=== PATIENT | female | born 1995 | race Caucasian/White ===

== ENCOUNTER 2018-10-02 07:40 | Inpatient (IN) | payer BC ==
[2018-10-02] MEDS ORDERED: Lactated Ringers 1,000 ML ONE (18:09)
[2018-10-02] MEDS ORDERED: Oxytocin/Lactated Ringers 10 UNIT/1,000 ML BAG IV ONE (18:09)
[2018-10-02] MEDS: Lactated Ringers 1,000 ML IV SCH (18:14)
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
[2018-10-02] MEDS ORDERED: Sodium Chloride 0.9% 10 ML Syringe FLUSH PRN (21:26)
[2018-10-02] MEDS ORDERED: Ondansetron 4 MG/2 ML SDV IVPUSH PRN (21:26)
[2018-10-02] MEDS ORDERED: Oxytocin/Lactated Ringers 10 UNIT/1,000 ML BAG IV SCH ×2 (21:30→21:45)
[2018-10-03] MEDS: Lactated Ringers 1,000 ML IV SCH ×2 (04:15→05:35)
[2018-10-03] MEDS: Nalbuphine 20 MG/ML 1 ML Syringe IVPUSH PRN ×2 (06:08→07:28)
--- NOTE | 2018-10-03 07:11 | PCM.PNLD ---
Labor Progress Note - VS & Meds Active Medications: Current Medications Lactated Ringer's (Ringers, Lactated) 1,000 mls @ 100 mls/hr IV ASDIRECTED MARSHALL Last Admin: 10/03/18 05:35 Dose: 100 mls/hr Oxytocin/Lactated Ringer's (Pitocin In Lr 10 Units/1,000 Ml) 10 unit in 1,000 mls @ 500 mls/hr IV .CONTINUOUS MARSHALL Oxytocin/Lactated Ringer's (Pitocin In Lr 10 Units/1,000 Ml) 10 unit in 1,000 mls @ 12 mls/hr IV TITRATE MARSHALL; Protocol Last Titration: 10/02/18 23:35 Dose: 12 munits/min, 72 mls/hr Nalbuphine HCl (Nubain) 10 mg IVPUSH Q2H PRN PRN Reason: pain Last Admin: 10/03/18 06:08 Dose: 5 mg Ondansetron HCl (Zofran) 4 mg IVPUSH Q4H PRN PRN Reason: Nausea/Vomiting Sodium Chloride (Saline Flush) 10 ml FLUSH ASDIRECTED PRN PRN Reason: Keep Vein Open - Uterine Contractions Uterine Monitoring Mode: External Conception Contraction Intensity: Moderate Uterine Resting Tone: Soft - Monitoring Monitor Mode: External Ultrasound Heart Rate (FHR) Baseline: 150 Heart Rate (FHR) Variability: Moderate (6-25 bmp) Accelerations: Present, 10x10 (=/<32 wks) Decelerations: Variable Strip Review: Category II - Vaginal Exam Dilation (cm): 7-8 Effacement (Percent): 80 Station: 1 Cervical Position: Anterior - Labor Progress (Free Text) Labor Progress: Patient has had slow progress since about 030. Was 6 cm at that time. Now is about 7 to almost 8 depending upon if checked with a contraction. Patient keeps feeling urge to push. Has been given nubain to try and help her relax so does not push on cervix, but with only mild improvement. Pitocin at 10. Will continue present management. May need to consider epidural to allow patient to relax and allow continued labor progress
--- NOTE | 2018-10-03 07:54 | PCM.DEL ---
L & D Note - General Info Date of Service: 10/03/18 - Delivery Note Labor: Induced by ARM, Induced by Oxytocin Delivery Outcome: Livebirth Infant Delivery Method: Spontaneous Vaginal Delivery-Single Infant Delivery Mode: Spontaneous Presentation: Left Occiput Anterior (MICHAEL) Nuchal Cord: Present, Reduced Anesthesia Type: None Amniotic Fluid Description: Clear Episiotomy Type: None Laceration: None Placenta: Intact, Spontaneous Cord: 3 Vessels Estimated Blood Loss: 300 : Bulb Syringe, Stimulated, Warmed, [place] Used, Warmer Used Delivery Comments (Free Text/Narrative):: Patient found to be complete and began pushing. With maternal pushing effort head delivered from an MICHAEL presentation nuchal cord present and reduced. With gentle downward traction the shoulders and body delivered. placed on maternal abdomen. Cord clamped and cut. Cord blood obtained. Placenta allowed time to separate and expelled intact. Inspection of the perineum showed no lacerations - General Info Date of Service: 10/03/18 - Patient Data Weight - Most Recent: 58.967 kg I&O - Last 24 Hours: Intake & Output 10/02/18 10/03/18 10/03/18 22:59 06:59 14:59 Intake Total 120 Balance 120 Lab Results Last 24 Hours: Laboratory Results - last 24 hr 10/02/18 10/02/18 10/02/18 Range/Units 17:46 17:46 17:46 WBC Cancelled Corrected WBC Cancelled RBC Cancelled Hgb Cancelled Hct Cancelled MCV Cancelled MCH Cancelled MCHC Cancelled RDW Std Deviation Cancelled Plt Count Cancelled MPV Cancelled Neutrophils % (Manual) Cancelled Band Neutrophils % Cancelled Lymphocytes % (Manual) Cancelled Atypical Lymphs % Cancelled Immat Monocytes % (Man) Cancelled Monocytes % (Manual) Cancelled Eosinophils % (Manual) Cancelled Basophils % (Manual) Cancelled Metamyelocytes % Cancelled Myelocytes % Cancelled Promyelocytes % Cancelled Blast Cells % Cancelled Plasma Cell % (Manual) Cancelled Immature Gran # Cancelled Absolute Neutrophils Cancelled Absolute Seg Neuts Cancelled Band Neutrophils # Cancelled Lymphocytes # (Manual) Cancelled Monocytes # (Manual) Cancelled Eosinophils # (Manual) Cancelled Basophils # (Manual) Cancelled Absolute Metamyelocyte Cancelled Absolute Myelocytes Cancelled Absolute Promyelocytes Cancelled Absolute Plasma Cells Cancelled Nucleated RBCs Cancelled Differential Comment Cancelled Hypersegmented Neuts Cancelled Atypical Lymphocytes Cancelled Vacuolated Monocytes Cancelled Absolute Blast Cells Cancelled Toxic Granulation Cancelled Dohle Bodies Cancelled Pelger-Huet Cells Cancelled Megakaryocytic Frags Cancelled Lidya Rods Cancelled WBC Morphology Comment Cancelled Platelet Estimate Cancelled Clumped Platelets Cancelled Giant Platelets Cancelled Plt Morphology Comment Cancelled Polychromasia Cancelled Hypochromasia Cancelled Poikilocytosis Cancelled Basophilic Stippling Cancelled Anisocytosis Cancelled Microcytosis Cancelled Macrocytosis Cancelled Spherocytes Cancelled Pappenheimer Bodies Cancelled Sickle Cells Cancelled Target Cells Cancelled Tear Drop Cells Cancelled Ovalocytes Cancelled Stomatocytes Cancelled Helmet Cells Cancelled Gallegos-Tolleson Bodies Cancelled [place] Rings Cancelled Hubert Cells Cancelled Elliptocytes Cancelled Acanthocytes (Spur) Cancelled Rouleaux Cancelled Hemoglobin C Crystals Cancelled Schistocytes Cancelled RBC Morph Comment Cancelled Smear Path Review Cancelled Isael Bodies Cancelled Slides for Path Review Cancelled Blood Type Cancelled B POSITIVE Gel Antibody Screen Cancelled Negative 10/02/18 Range/Units 17:46 WBC 10.03 Corrected WBC RBC 3.95 L Hgb 11.3 Hct 35.6 MCV 90.1 MCH 28.6 MCHC 31.7 L RDW Std Deviation 42.5 Plt Count 234 MPV 10.6 Neutrophils % (Manual) 63 H Band Neutrophils % 0 Lymphocytes % (Manual) 30 Atypical Lymphs % Immat Monocytes % (Man) Monocytes % (Manual) 7 Eosinophils % (Manual) 0 L Basophils % (Manual) 0 L Metamyelocytes % Myelocytes % Promyelocytes % Blast Cells % Plasma Cell % (Manual) Immature Gran # Absolute Neutrophils Absolute Seg Neuts Band Neutrophils # Lymphocytes # (Manual) Monocytes # (Manual) Eosinophils # (Manual) Basophils # (Manual) Absolute Metamyelocyte Absolute Myelocytes Absolute Promyelocytes Absolute Plasma Cells Nucleated RBCs Differential Comment Hypersegmented Neuts Atypical Lymphocytes Vacuolated Monocytes Absolute Blast Cells Toxic Granulation Dohle Bodies Pelger-Huet Cells Megakaryocytic Frags Lidya Rods WBC Morphology Comment Platelet Estimate Adequate Clumped Platelets Giant Platelets Plt Morphology Comment Normal Polychromasia Hypochromasia Poikilocytosis Basophilic Stippling Anisocytosis Microcytosis Macrocytosis Spherocytes Pappenheimer Bodies Sickle Cells Target Cells Tear Drop Cells Ovalocytes Stomatocytes Helmet Cells Gallegos-Tolleson Bodies [place] Rings Hubert Cells Elliptocytes Acanthocytes (Spur) Rouleaux Hemoglobin C Crystals Schistocytes RBC Morph Comment Normal Smear Path Review Isael Bodies Slides for Path Review Blood Type Gel Antibody Screen Med Orders - Current: Current Medications Lactated Ringer's (Ringers, Lactated) 1,000 mls @ 100 mls/hr IV ASDIRECTED MARSHALL Last Admin: 10/03/18 05:35 Dose: 100 mls/hr Oxytocin/Lactated Ringer's (Pitocin In Lr 10 Units/1,000 Ml) 10 unit in 1,000 mls @ 500 mls/hr IV .CONTINUOUS MARSHALL Oxytocin/Lactated Ringer's (Pitocin In Lr 10 Units/1,000 Ml) 10 unit in 1,000 mls @ 12 mls/hr IV TITRATE MARSHALL; Protocol Last Titration: 10/03/18 00:27 Dose: 6 munits/min, 36 mls/hr Nalbuphine HCl (Nubain) 10 mg IVPUSH Q2H PRN PRN Reason: pain Last Admin: 10/03/18 07:28 Dose: 5 mg Ondansetron HCl (Zofran) 4 mg IVPUSH Q4H PRN PRN Reason: Nausea/Vomiting Sodium Chloride (Saline Flush) 10 ml FLUSH ASDIRECTED PRN PRN Reason: Keep Vein Open - Problem List & Annotations (1) 38 weeks gestation of SNOMED Code(s): 68561625 Code(s): Z3A.38 - 38 WEEKS GESTATION OF Status: Acute Current Visit: Yes (2) Solar pruritus SNOMED Code(s): 813336165 Code(s): L29.9 - PRURITUS, UNSPECIFIED Status: Acute Current Visit: Yes (3) Vaginal delivery SNOMED Code(s): 834013786 Code(s): O80 - ENCOUNTER FOR FULL-TERM UNCOMPLICATED DELIVERY Status: Acute Current Visit: No - Problem List Review Problem List Initiated/Reviewed/Updated: Yes - My Orders Last 24 Hours: My Active Orders 10/02/18 17:46 BILE ACIDS [REF] Routine RAPID PLASMA REAGIN,RPR [CHEM] Routine 10/02/18 21:26 Patient Status [ADT] Routine Activity as Tolerated [RC] PFP Communication Order [RC] ASDIRECTED Non Stress Test [RC] PER UNIT ROUTINE Notify Provider [RC] PFP Notify Provider [RC] PRN Urinary Catheter Assessment [RC] ASDIRECTED Vital Signs [RC] PER UNIT ROUTINE Nalbuphine [Nubain] 10 mg IVPUSH Q2H PRN Ondansetron [Zofran] 4 mg IVPUSH Q4H PRN Sodium Chloride 0.9% [Saline Flush] 10 ml FLUSH ASDIRECTED PRN Electronic Heart Tones Ext w TOCO [WOMSER] Routine Electronic Heart Tones Internal [WOMSER] Per Unit Routine Peripheral IV Insertion Adult [OM.PC] Routine Resuscitation Status Routine 10/02/18 21:27 Heart Tones [RC] ASDIRECTED Peripheral IV Care [RC] . DIRECTED 10/02/18 21:30 Lactated Ringers [Ringers, Lactated] 1,000 ml IV ASDIRECTED Oxytocin/Lactated Ringers [Pitocin in LR 10 Units/1,000 ML] 10 unit in 1,000 ml IV .CONTINUOUS 10/02/18 21:45 Oxytocin/Lactated Ringers [Pitocin in LR 10 Units/1,000 ML] 10 unit in 1,000 ml IV TITRATE 10/02/18 Breakfast Regular Diet [DIET] - Assessment Assessment:: 23 y/o G3 now P2012 PPD#0 from - Plan Plan:: * Routine cares * Encourage breast feeding * Discharge home in 1-2 days
[2018-10-03] MEDS ORDERED: Lanolin 100% Cream 7 GM Tube TOP PRN (07:56)
[2018-10-03] MEDS ORDERED: Witch Hazel Medicated Pads 100/Jar TOP PRN (07:56)
[2018-10-03] MEDS ORDERED: Docusate Sodium 100 MG Cap PO PRN (07:56)
[2018-10-03] MEDS ORDERED: Benzocaine/Menthol 20%-0.5% Spray 56 GM Canister TOP PRN (07:56)
[2018-10-03] MEDS ORDERED: Ibuprofen 600 MG Tab PO PRN (07:56)
[2018-10-03] MEDS ORDERED: Acetaminophen 325 MG Tab PO PRN (07:56)
--- NOTE | 2018-10-04 06:57 | PCM.DCSUM1 ---
Discharge Summary - Discharge Data Discharge Date: 10/04/18 Discharge Disposition: Home, Self-Care 01 Condition: Good - Discharge Diagnosis/Problem(s) (1) 38 weeks gestation of SNOMED Code(s): 64497349 ICD Code: Z3A.38 - 38 WEEKS GESTATION OF Status: Acute Current Visit: Yes (2) Solar pruritus SNOMED Code(s): 731080595 ICD Code: L29.9 - PRURITUS, UNSPECIFIED Status: Acute Current Visit: Yes (3) Vaginal delivery SNOMED Code(s): 508091651 ICD Code: O80 - ENCOUNTER FOR FULL-TERM UNCOMPLICATED DELIVERY Status: Acute Current Visit: No - Patient Summary/Data Complications: None Consults: None Recommended Follow-up Testing/Procedures: Follow up in 3-5 weeks for check Hospital Course: 23 y/o at 38 1/7 wks who presented for IOL for presumed cholestasis of . Patient had noted about 1 week of intense itching prior to her clinic appt. Bile acids ordered, but IOL started. This was done with pitocin and AROM. She made slow, but steady progress to complete dilation. She underwent an uncomplicated . See delivery note. she did well and was discharged home on PPD#1 - Patient Instructions Diet: Regular Diet as Tolerated Activity: As Tolerated Activity, Other: Pelvic Rest for 6 weeks Driving: May Drive Today Showering/Bathing: May Shower Showering/Bathing, Other: May Bathe Notify Provider of: Fever, Increased Pain, Swelling and Redness, Drainage - Discharge Plan *PRESCRIPTION DRUG MONITORING PROGRAM REVIEWED*: Not Applicable *COPY OF PRESCRIPTION DRUG MONITORING REPORT IN PATIENT ANTONIO: Not Applicable Home Medications: Home Meds Docusate Sodium [Colace] 100 mg PO BID PRN cap 10/03/18 [Rx] Ibuprofen [Motrin] 600 mg PO Q6H PRN tablet 10/03/18 [Rx] Referrals: Keisha Pineda MD [Primary Care Provider] - (3-5weeks for check) - Discharge Summary/Plan Comment DC Time >30 min.: No - Patient Data Vitals - Most Recent: Last Vital Signs Temp 36.6 C 10/04/18 03:55 Pulse 69 10/04/18 03:55 Resp 16 10/04/18 03:55 BP 108/81 10/04/18 03:55 Pulse Ox 98 10/04/18 03:55 Weight - Most Recent: 58.967 kg I&O - Last 24 hours: Intake & Output 10/03/18 10/03/18 10/04/18 14:59 22:59 06:59 Intake Total 1800 180 Balance 1800 180 Lab Results - Last 24 hrs: Laboratory Results - last 24 hr 10/02/18 Range/Units 17:46 RPR Non-reactive (NONREACTIVE) Med Orders - Current: Current Medications Acetaminophen (Tylenol) 650 mg PO Q4H PRN PRN Reason: mild pain or fever Benzocaine/Menthol (Dermoplast Pain Relief [place]) 0 gm TOP ASDIRECTED PRN PRN Reason: Perineal Comfort Measure Last Admin: 10/03/18 09:15 Dose: 1 applic Docusate Sodium (Colace) 100 mg PO BID PRN PRN Reason: Constipation Emollient Ointment (Lansinoh Hpa) 0 gm TOP ASDIRECTED PRN PRN Reason: Sore Nipples Ibuprofen (Motrin) 600 mg PO Q6H PRN PRN Reason: Mild pain or fever Witch Venita (Tucks) 1 pad TOP ASDIRECTED PRN PRN Reason: Hemorrhoid pain Last Admin: 10/03/18 09:15 Dose: 1 applic Discontinued Medications Lactated Ringer's (Ringers, Lactated) 1,000 mls @ 100 mls/hr IV ASDIRECTED MARSHALL Last Admin: 10/03/18 05:35 Dose: 100 mls/hr Oxytocin/Lactated Ringer's (Pitocin In Lr 10 Units/1,000 Ml) 10 unit in 1,000 mls @ 500 mls/hr IV .CONTINUOUS MARSHALL Last Admin: 10/03/18 08:21 Dose: 500 mls/hr Oxytocin/Lactated Ringer's (Pitocin In Lr 10 Units/1,000 Ml) 10 unit in 1,000 mls @ 12 mls/hr IV TITRATE MARSHALL; Protocol Last Titration: 10/03/18 07:41 Dose: 500 mls/hr Lactated Ringer's (Ringers, Lactated) Confirm Administered Dose 1,000 mls @ as directed .ROUTE .STK-MED ONE Stop: 10/02/18 18:10 Last Admin: 10/03/18 09:14 Dose: Not Given Oxytocin/Lactated Ringer's (Pitocin In Lr 10 Units/1,000 Ml) Confirm Administered Dose 10 unit in 1,000 mls @ as directed IV .STK-MED ONE Stop: 10/02/18 18:10 Last Admin: 10/03/18 09:11 Dose: Not Given Nalbuphine HCl (Nubain) 10 mg IVPUSH Q2H PRN PRN Reason: pain Last Admin: 10/03/18 07:28 Dose: 5 mg Ondansetron HCl (Zofran) 4 mg IVPUSH Q4H PRN PRN Reason: Nausea/Vomiting Sodium Chloride (Saline Flush) 10 ml FLUSH ASDIRECTED PRN PRN Reason: Keep Vein Open
--- NOTE | 2018-10-04 06:57 | PCM.PNPP ---
- General Info Date of Service: 10/04/18 Functional Status: Reports: Pain Controlled, Tolerating Diet, Ambulating, Urinating - Review of Systems General: Reports: No Symptoms Pulmonary: Reports: No Symptoms Cardiovascular: Reports: No Symptoms Gastrointestinal: Reports: No Symptoms Genitourinary: Reports: No Symptoms Musculoskeletal: Reports: No Symptoms Neurological: Reports: No Symptoms - Patient Data Vital Signs - Most Recent: Last Vital Signs Temp 36.6 C 10/04/18 03:55 Pulse 69 10/04/18 03:55 Resp 16 10/04/18 03:55 BP 108/81 10/04/18 03:55 Pulse Ox 98 10/04/18 03:55 Weight - Most Recent: 58.967 kg I&O - Last 24 Hours: Intake & Output 10/03/18 10/03/18 10/04/18 14:59 22:59 06:59 Intake Total 1800 180 Balance 1800 180 Lab Results - Last 24 Hours: Laboratory Results - last 24 hr 10/02/18 Range/Units 17:46 RPR Non-reactive (NONREACTIVE) Med Orders - Current: Current Medications Acetaminophen (Tylenol) 650 mg PO Q4H PRN PRN Reason: mild pain or fever Benzocaine/Menthol (Dermoplast Pain Relief [place]) 0 gm TOP ASDIRECTED PRN PRN Reason: Perineal Comfort Measure Last Admin: 10/03/18 09:15 Dose: 1 applic Docusate Sodium (Colace) 100 mg PO BID PRN PRN Reason: Constipation Emollient Ointment (Lansinoh Hpa) 0 gm TOP ASDIRECTED PRN PRN Reason: Sore Nipples Ibuprofen (Motrin) 600 mg PO Q6H PRN PRN Reason: Mild pain or fever Witch Venita (Tucks) 1 pad TOP ASDIRECTED PRN PRN Reason: Hemorrhoid pain Last Admin: 10/03/18 09:15 Dose: 1 applic Discontinued Medications Lactated Ringer's (Ringers, Lactated) 1,000 mls @ 100 mls/hr IV ASDIRECTED MARSHALL Last Admin: 10/03/18 05:35 Dose: 100 mls/hr Oxytocin/Lactated Ringer's (Pitocin In Lr 10 Units/1,000 Ml) 10 unit in 1,000 mls @ 500 mls/hr IV .CONTINUOUS MARSHALL Last Admin: 10/03/18 08:21 Dose: 500 mls/hr Oxytocin/Lactated Ringer's (Pitocin In Lr 10 Units/1,000 Ml) 10 unit in 1,000 mls @ 12 mls/hr IV TITRATE MARSHALL; Protocol Last Titration: 10/03/18 07:41 Dose: 500 mls/hr Lactated Ringer's (Ringers, Lactated) Confirm Administered Dose 1,000 mls @ as directed .ROUTE .STK-MED ONE Stop: 10/02/18 18:10 Last Admin: 10/03/18 09:14 Dose: Not Given Oxytocin/Lactated Ringer's (Pitocin In Lr 10 Units/1,000 Ml) Confirm Administered Dose 10 unit in 1,000 mls @ as directed IV .STK-MED ONE Stop: 10/02/18 18:10 Last Admin: 10/03/18 09:11 Dose: Not Given Nalbuphine HCl (Nubain) 10 mg IVPUSH Q2H PRN PRN Reason: pain Last Admin: 10/03/18 07:28 Dose: 5 mg Ondansetron HCl (Zofran) 4 mg IVPUSH Q4H PRN PRN Reason: Nausea/Vomiting Sodium Chloride (Saline Flush) 10 ml FLUSH ASDIRECTED PRN PRN Reason: Keep Vein Open - Interaction Infant Disposition, : in Room with Family Interaction: Holding Infant Feeding: Breastfed Infant; Nursed Well Support Person: Mother, Other (see below) - Recovery Exam Fundal Tone: Firm Fundal Level: 1 Fingerbreadths Below Umbilicus Fundal Placement: Midline Lochia Amount: Small Lochia Color: Rubra/Red Perineum Description: Intact, Minimal Bruising/Swelling Episiotomy/Laceration: None Bladder Status: Voiding Urinary Elimination: Voided - Exam General: Alert, Oriented, Cooperative GI/Abdominal Exam: Soft, Non-Tender Extremities: Normal Inspection Skin: Warm, Dry, Intact - Problem List & Annotations (1) 38 weeks gestation of SNOMED Code(s): 14968468 Code(s): Z3A.38 - 38 WEEKS GESTATION OF Status: Acute Current Visit: Yes (2) Solar pruritus SNOMED Code(s): 415200961 Code(s): L29.9 - PRURITUS, UNSPECIFIED Status: Acute Current Visit: Yes (3) Vaginal delivery SNOMED Code(s): 026277456 Code(s): O80 - ENCOUNTER FOR FULL-TERM UNCOMPLICATED DELIVERY Status: Acute Current Visit: No - Problem List Review Problem List Initiated/Reviewed/Updated: Yes - My Orders Last 24 Hours: My Active Orders 10/03/18 07:56 Activity as Tolerated [RC] PER UNIT ROUTINE Vital Signs [RC] 03,09,15,21 Acetaminophen [Tylenol] 650 mg PO Q4H PRN Benzocaine/Menthol [Dermoplast Pain Relief [place]] See Dose Instructions TOP ASDIRECTED PRN Docusate Sodium [Colace] 100 mg PO BID PRN Ibuprofen [Motrin] 600 mg PO Q6H PRN Lanolin [Lansinoh HPA] See Dose Instructions TOP ASDIRECTED PRN Witch Venita [Tucks] 1 pad TOP ASDIRECTED PRN Assess Lochia [WOMSER] Per Unit Routine Assess Uterine Involution [WOMSER] Per Unit Routine Breast Pump [WOMSER] Per Unit Routine Ice Therapy [OM.PC] Per Unit Routine Perineal Care [OM.PC] Per Unit Routine Peripheral IV Discontinue [OM.PC] Routine Sitz Bath [OM.PC] Per Unit Routine 10/03/18 08:00 Heat Therapy [OM.PC] PRN 10/03/18 Breakfast Regular Diet [DIET] 10/04/18 06:57 Ready for Discharge [RC] PER UNIT ROUTINE 10/04/18 08:00 Heat Therapy [OM.PC] PRN - Assessment Assessment:: 23 y/o G3 now P2012 PPD#1 from - Plan Plan:: * Routine cares * Encourage breast feeding * Discharge home today
[2018-10-04 11:29] VITALS: BP 123/78
== END 2018-10-04 12:10 | disposition home or self-care (01) | DRG 560 ==
LOC: JD.OB 07:40 → OBSVTOIN 10-03 07:40 → JD.OB 10-03 07:41
PROVIDERS: ADMIT Obstetrics & Gynecology; ATTEND Obstetrics & Gynecology
PROC: 3E033VJ Introduction of Other Hormone into Peripheral Vein, Percutaneous Approach (ICD-10-PCS; principal; 2018-10-03)
PROC: 10907ZC Drainage of Amniotic Fluid, Therapeutic from Products of Conception, Via Natural or Artificial Opening (ICD-10-PCS; principal; 2018-10-03)
PROC: 10E0XZZ Delivery of Products of Conception, External Approach (ICD-10-PCS; principal; 2018-10-03)
PROC: 6A550ZT Pheresis of Cord Blood Stem Cells, Single (ICD-10-PCS; principal; 2018-10-03)
DX: O26.62 Liver and biliary tract disorders in childbirth (principal); K83.1 Obstruction of bile duct; O99.344 Other mental disorders complicating childbirth; Z37.0 Single live birth; Z3A.38 38 weeks gestation of pregnancy; F41.9 Anxiety disorder, unspecified; O69.81X0 Labor and delivery complicated by cord around neck, without compression, not applicable or unspecified; Z88.8 Allergy status to other drugs, medicaments and biological substances; Z91.040 Latex allergy status
CPT/HCPCS: 36415; 59025; 59409; 82239; 85007; 85027; 86592; 86850; 86900; 86901; A9270-GY; J2300; J2590; J7120

== ENCOUNTER 2019-02-07 17:56 | Emergency (ER) | payer BC ==
[2019-02-07 18:09] VITALS: BP 148/91
[2019-02-07] MEDS ORDERED: Ondansetron 4 MG/2 ML SDV IVPUSH ONE (18:50)
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
[2019-02-07] MEDS ORDERED: Magnesium Sulfate/Water 2 GM in Premix Bag 1 BAG IV ONE (19:41)
[2019-02-07] MEDS ORDERED: Sodium Chloride 0.9% 1,000 ML IV SCH (19:45)
[2019-02-07] MEDS ORDERED: Dicyclomine 10 MG Cap PO ONE (19:53)
[2019-02-07] MEDS ORDERED: Ketorolac 30 MG/ML SDV IVPUSH ONE (20:31)
== END 2019-02-07 21:53 | disposition home or self-care (01) ==
LOC: JD.ED 17:56 → SUPCPDRO 17:56 → JD.ED 21:53
DX: R11.2 Nausea with vomiting, unspecified (principal); F41.9 Anxiety disorder, unspecified; Z88.8 Allergy status to other drugs, medicaments and biological substances; Z91.040 Latex allergy status; Z79.84 Long term (current) use of oral hypoglycemic drugs
CPT/HCPCS: 36415; 80053; 81001; 82550; 83735; 85025; 93005; 96365; 96366; 96375; 99283; A9270; J1885; J2405; J3475; J7040; 93010; 99284

== ENCOUNTER 2020-04-27 03:54 | Inpatient (IN) | payer OTHER ==
[2020-04-27] MEDS ORDERED: Sodium Chloride 0.9% 10 ML Syringe FLUSH PRN (17:51)
[2020-04-27] MEDS ORDERED: Nalbuphine 10 MG/ML Syringe IVPUSH PRN (17:51)
[2020-04-27] MEDS ORDERED: Ondansetron 4 MG/2 ML SDV IVPUSH PRN (17:51)
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
[2020-04-27] MEDS ORDERED: Lactated Ringers 1,000 ML IV SCH (18:00)
[2020-04-27] MEDS ORDERED: Oxytocin/Lactated Ringers 10 UNIT/1,000 ML BAG IV SCH ×2 (18:00)
[2020-04-28] MEDS ORDERED: Lidocaine 1% 50 ML MDV ONE (02:24)
--- NOTE | 2020-04-28 04:04 | PCM.DEL ---
L & D Note - General Info Date of Service: 04/28/20 - Delivery Note Labor: Induced by ARM, Induced by Oxytocin Delivery Outcome: Livebirth Infant Delivery Method: Spontaneous Vaginal Delivery-Single Infant Delivery Mode: Spontaneous Presentation: Right Occiput Anterior ([place]) Nuchal Cord: None Anesthesia Type: None Amniotic Fluid Description: Clear Episiotomy Type: None Laceration: None Placenta: Intact, Spontaneous Cord: 3 Vessels Estimated Blood Loss: 100 : Bulb Syringe, Stimulated, Warmed, [place] Used, Warmer Used Delivery Comments (Free Text/Narrative):: Patient found to be complete and began pushing. With maternal pushing head delivered from an [place] presentation. No nuchal cord present. With gentle downward traction shoulders and body delivered. Infant placed on maternal abdomen. Cord clamped and cut. Cord blood obtained. Placenta allowed time to separate and expelled intact. Inspection of the perineum showed no lacerations - General Info Date of Service: 04/28/20 - Patient Data Vitals - Most Recent: Last Vital Signs Temp 37.1 C 04/27/20 18:41 Pulse 88 04/27/20 18:41 Resp 16 04/27/20 18:41 BP 126/70 04/27/20 18:41 Pulse Ox Weight - Most Recent: 71.668 kg - Problem List & Annotations (1) 37 weeks gestation of SNOMED Code(s): 40993315 Code(s): Z3A.37 - 37 WEEKS GESTATION OF Status: Acute Current Visit: Yes (2) Solar pruritus SNOMED Code(s): 425434855 Code(s): L29.9 - PRURITUS, UNSPECIFIED Status: Acute Current Visit: No (3) Vaginal delivery SNOMED Code(s): 651036582 Code(s): O80 - ENCOUNTER FOR FULL-TERM UNCOMPLICATED DELIVERY Status: Acute Current Visit: No - Problem List Review Problem List Initiated/Reviewed/Updated: Yes - My Orders Last 24 Hours: My Active Orders 04/27/20 Dinner Regular Diet [DIET] 04/27/20 17:51 Patient Status [ADT] Routine Communication Order [RC] ASDIRECTED Communication Order [RC] ASDIRECTED Communication Order [RC] ASDIRECTED Notify Provider [RC] ASDIRECTED Notify Provider [RC] PRN Peripheral IV Care [RC] Q2HR Nalbuphine [Nubain] 10 mg IVPUSH Q2H PRN Ondansetron [Zofran] 4 mg IVPUSH Q4H PRN Sodium Chloride 0.9% [Saline Flush] 10 ml FLUSH ASDIRECTED PRN Electronic Heart Tones Internal [WOMSER] Per Unit Routine Peripheral IV Insertion Adult [OM.PC] Routine Resuscitation Status Routine 04/27/20 17:52 Up ad Meri [RC] ASDIRECTED 04/27/20 17:53 CORONAVIRUS COVID-19 PAULETTE [MOLEC] Stat 04/27/20 18:00 Lactated Ringers [Ringers, Lactated] 1,000 ml IV ASDIRECTED Oxytocin/Lactated Ringers [Pitocin in LR 10 Units/1,000 ML] 10 unit in 1,000 ml IV .CONTINUOUS Oxytocin/Lactated Ringers [Pitocin in LR 10 Units/1,000 ML] 10 unit in 1,000 ml IV TITRATE 04/27/20 18:06 BILE ACIDS [REF] Stat - Assessment Assessment:: PPD#0 - Plan Plan:: Routine cares Breast feeding Discharge home in 1-2 days
[2020-04-28] MEDS ORDERED: Ibuprofen 600 MG Tab PO PRN (04:18)
[2020-04-28] MEDS ORDERED: Docusate Sodium 100 MG Cap PO PRN (04:18)
[2020-04-28] MEDS ORDERED: Benzocaine/Menthol 20%-0.5% Spray 56 GM Canister TOP PRN (04:18)
[2020-04-28] MEDS ORDERED: Witch Hazel Medicated Pads 40/Jar TOP PRN (04:18)
[2020-04-28] MEDS ORDERED: Acetaminophen 325 MG Tab PO PRN (04:18)
[2020-04-29 04:29] VITALS: BP 93/60; PULSE 68
--- NOTE | 2020-04-29 08:15 | PCM.PNPP ---
- General Info Date of Service: 04/29/20 Functional Status: Reports: Pain Controlled, Tolerating Diet, Ambulating, Urinating - Review of Systems General: Reports: No Symptoms Pulmonary: Reports: No Symptoms Cardiovascular: Reports: No Symptoms Gastrointestinal: Reports: Abdominal Pain (some cramping ) Genitourinary: Reports: No Symptoms Musculoskeletal: Reports: No Symptoms Neurological: Reports: No Symptoms - Patient Data Vital Signs - Most Recent: Last Vital Signs Temp 36.8 C 04/29/20 02:47 Pulse 68 04/29/20 02:47 Resp 16 04/29/20 02:47 BP 93/60 04/29/20 02:47 Pulse Ox 98 04/29/20 02:47 Weight - Most Recent: 71.668 kg I&O - Last 24 Hours: Intake & Output 04/28/20 04/29/20 04/29/20 22:59 06:59 14:59 Intake Total 120 Balance 120 Med Orders - Current: Current Medications Acetaminophen (Tylenol) 650 mg PO Q4H PRN PRN Reason: mild pain or fever Benzocaine/Menthol (Dermoplast Pain Relief [place]) 0 gm TOP ASDIRECTED PRN PRN Reason: Perineal Comfort Measure Last Admin: 04/28/20 06:03 Dose: 1 can Documented by: Docusate Sodium (Colace) 100 mg PO BID PRN PRN Reason: Constipation Ibuprofen (Motrin) 600 mg PO Q6H PRN PRN Reason: Mild pain or fever Witch Venita (Tucks) 1 pad TOP ASDIRECTED PRN PRN Reason: Perineal Comfort Measure Last Admin: 04/28/20 06:03 Dose: 1 container Documented by: Discontinued Medications Oxytocin/Lactated Ringer's (Pitocin In Lr 10 Units/1,000 Ml) 10 unit in 1,000 mls @ 12 mls/hr IV TITRATE MARSHALL; Protocol Last Titration: 04/28/20 03:55 Dose: 166.5 munits/min, 999 mls/hr Documented by: Oxytocin/Lactated Ringer's (Pitocin In Lr 10 Units/1,000 Ml) 10 unit in 1,000 mls @ 500 mls/hr IV .CONTINUOUS MRASHALL Last Admin: 04/28/20 04:22 Dose: 500 mls/hr Documented by: Lactated Ringer's (Ringers, Lactated) 1,000 mls @ 40 mls/hr IV ASDIRECTED MARSHALL Last Admin: 04/27/20 18:30 Dose: 40 mls/hr Documented by: Lidocaine HCl (Xylocaine 1%) Confirm Administered Dose 50 ml .ROUTE .STK-MED ONE Stop: 04/28/20 02:25 Last Admin: 04/28/20 06:39 Dose: Not Given Documented by: Nalbuphine HCl (Nubain) 10 mg IVPUSH Q2H PRN PRN Reason: Pain Ondansetron HCl (Zofran) 4 mg IVPUSH Q4H PRN PRN Reason: Nausea/Vomiting Sodium Chloride (Saline Flush) 10 ml FLUSH ASDIRECTED PRN PRN Reason: Keep Vein Open - Infant Interaction Infant Disposition, : [place] in Room with Family Interaction: Holding Infant Feeding: Breastfed Infant; Nursed Well Support Person: - Recovery Exam Fundal Tone: Firm Fundal Level: 1 Fingerbreadths Below Umbilicus Fundal Placement: Midline Lochia Amount: Scant Lochia Color: Rubra/Red Perineum Description: Intact, Minimal Bruising/Swelling Episiotomy/Laceration: None Bladder Status: Voiding Urinary Elimination: Voided - Exam General: Alert, Oriented, Cooperative GI/Abdominal Exam: Soft, Non-Tender Extremities: Normal Inspection Skin: Warm, Dry, Intact - Problem List & Annotations (1) 37 weeks gestation of SNOMED Code(s): 18331478 Code(s): Z3A.37 - 37 WEEKS GESTATION OF Status: Acute Current Visit: Yes (2) Solar pruritus SNOMED Code(s): 640868778 Code(s): L29.9 - PRURITUS, UNSPECIFIED Status: Acute Current Visit: No (3) Vaginal delivery SNOMED Code(s): 825686498 Code(s): O80 - ENCOUNTER FOR FULL-TERM UNCOMPLICATED DELIVERY Status: Acute Current Visit: No - Problem List Review Problem List Initiated/Reviewed/Updated: Yes - My Orders Last 24 Hours: My Active Orders 04/29/20 04:18 Heat Therapy [OM.PC] PRN 04/29/20 08:15 Ready for Discharge [RC] PER UNIT ROUTINE - Assessment Assessment:: PPD#1 - Plan Plan:: Routine cares Breast feeding Discharge home today
--- NOTE | 2020-04-29 08:15 | PCM.DCSUM1 ---
Discharge Summary - Discharge Data Discharge Date: 04/29/20 Discharge Disposition: Home, Self-Care 01 Condition: Good - Referral to Home Health Primary Care Physician: Keisha Pineda MD - Discharge Diagnosis/Problem(s) (1) 37 weeks gestation of SNOMED Code(s): 13510358 ICD Code: Z3A.37 - 37 WEEKS GESTATION OF Status: Acute Current Visit: Yes (2) Solar pruritus SNOMED Code(s): 644433367 ICD Code: L29.9 - PRURITUS, UNSPECIFIED Status: Acute Current Visit: No (3) Vaginal delivery SNOMED Code(s): 731318671 ICD Code: O80 - ENCOUNTER FOR FULL-TERM UNCOMPLICATED DELIVERY Status: Acute Current Visit: No - Patient Summary/Data Complications: None Consults: None Recommended Follow-up Testing/Procedures: Follow up in 3 weeks for check Hospital Course: 24 y/o at 37 0/7 wks who presented for IOL For solar pruritus concerning for possible cholestasis of . Induction done with AROM and pitocin. She progressed well to complete dilation and underwent an uncomplicated . did well and was discharged home on PPD#1 - Patient Instructions Diet: Regular Diet as Tolerated Activity: As Tolerated Activity, Other: Pelvic rest for 6 weeks Driving: May Drive Today Showering/Bathing: May Shower Showering/Bathing, Other: May Bathe Notify Provider of: Fever, Increased Pain, Swelling and Redness, Drainage, Nausea and/or Vomiting - Discharge Plan *PRESCRIPTION DRUG MONITORING PROGRAM REVIEWED*: No *COPY OF PRESCRIPTION DRUG MONITORING REPORT IN PATIENT ANTONIO: No Home Medications: Home Meds Vit37/Iron/Folic Acid [[place]] 1 tab PO DAILY 04/27/20 [History] Docusate Sodium [Colace] 100 mg PO BID PRN cap 04/29/20 [Rx] Ibuprofen [Motrin] 600 mg PO Q6H PRN tablet 04/29/20 [Rx] Patient Handouts: Care After Vaginal Delivery Referrals: Keisha Pineda MD [Primary Care Provider] - (3 weeks for check ) - Discharge Summary/Plan Comment DC Time >30 min.: No - Patient Data Vitals - Most Recent: Last Vital Signs Temp 36.8 C 04/29/20 02:47 Pulse 68 04/29/20 02:47 Resp 16 04/29/20 02:47 BP 93/60 04/29/20 02:47 Pulse Ox 98 04/29/20 02:47 Weight - Most Recent: 71.668 kg I&O - Last 24 hours: Intake & Output 04/28/20 04/29/20 04/29/20 22:59 06:59 14:59 Intake Total 120 Balance 120 Med Orders - Current: Current Medications Acetaminophen (Tylenol) 650 mg PO Q4H PRN PRN Reason: mild pain or fever Benzocaine/Menthol (Dermoplast Pain Relief [place]) 0 gm TOP ASDIRECTED PRN PRN Reason: Perineal Comfort Measure Last Admin: 04/28/20 06:03 Dose: 1 can Documented by: Docusate Sodium (Colace) 100 mg PO BID PRN PRN Reason: Constipation Ibuprofen (Motrin) 600 mg PO Q6H PRN PRN Reason: Mild pain or fever Witch Venita (Tucks) 1 pad TOP ASDIRECTED PRN PRN Reason: Perineal Comfort Measure Last Admin: 04/28/20 06:03 Dose: 1 container Documented by: Discontinued Medications Oxytocin/Lactated Ringer's (Pitocin In Lr 10 Units/1,000 Ml) 10 unit in 1,000 mls @ 12 mls/hr IV TITRATE MARSHALL; Protocol Last Titration: 04/28/20 03:55 Dose: 166.5 munits/min, 999 mls/hr Documented by: Oxytocin/Lactated Ringer's (Pitocin In Lr 10 Units/1,000 Ml) 10 unit in 1,000 mls @ 500 mls/hr IV .CONTINUOUS MARSHALL Last Admin: 04/28/20 04:22 Dose: 500 mls/hr Documented by: Lactated Ringer's (Ringers, Lactated) 1,000 mls @ 40 mls/hr IV ASDIRECTED MARSHALL Last Admin: 04/27/20 18:30 Dose: 40 mls/hr Documented by: Lidocaine HCl (Xylocaine 1%) Confirm Administered Dose 50 ml .ROUTE .STK-MED ONE Stop: 04/28/20 02:25 Last Admin: 04/28/20 06:39 Dose: Not Given Documented by: Nalbuphine HCl (Nubain) 10 mg IVPUSH Q2H PRN PRN Reason: Pain Ondansetron HCl (Zofran) 4 mg IVPUSH Q4H PRN PRN Reason: Nausea/Vomiting Sodium Chloride (Saline Flush) 10 ml FLUSH ASDIRECTED PRN PRN Reason: Keep Vein Open
== END 2020-04-29 10:15 | disposition home or self-care (01) | DRG 805 ==
LOC: JD.OB 03:54 → OBSVTOIN 04-28 03:54 → JD.OB 04-28 03:55
PROVIDERS: ADMIT Obstetrics & Gynecology; ATTEND Obstetrics & Gynecology
PROC: 10E0XZZ Delivery of Products of Conception, External Approach (ICD-10-PCS; principal; 2020-04-28)
PROC: 10907ZC Drainage of Amniotic Fluid, Therapeutic from Products of Conception, Via Natural or Artificial Opening (ICD-10-PCS; 2020-04-28)
PROC: 3E033VJ Introduction of Other Hormone into Peripheral Vein, Percutaneous Approach (ICD-10-PCS; 2020-04-28)
DX: O26.62 Liver and biliary tract disorders in childbirth (principal); K83.1 Obstruction of bile duct; Z37.0 Single live birth; O26.893 Other specified pregnancy related conditions, third trimester; O99.52 Diseases of the respiratory system complicating childbirth; L29.9 Pruritus, unspecified; J45.909 Unspecified asthma, uncomplicated; Z3A.37 37 weeks gestation of pregnancy; Z91.040 Latex allergy status; Z88.8 Allergy status to other drugs, medicaments and biological substances; Z79.899 Other long term (current) drug therapy
CPT/HCPCS: 36415; 59025; 59409; 82239; 84450; 84460; 85027; 86592; 86850; 86900; 86901; A9270-GY; J2590; J7120

== ENCOUNTER 2022-02-06 19:56 | Inpatient (IN) | payer OTHER ==
[2022-02-06] MEDS ORDERED: Sodium Chloride 0.9% 10 ML Syringe FLUSH PRN (20:46)
[2022-02-06] MEDS ORDERED: Ondansetron 4 MG/2 ML SDV IVPUSH PRN (20:46)
[2022-02-06] MEDS ORDERED: Nalbuphine HCl 10 MG/ 1ML Amp IVPUSH PRN (20:46)
[2022-02-06] MEDS ORDERED: Acetaminophen 325 MG Tab PO PRN (20:46)
[2022-02-06] MEDS ORDERED: Lactated Ringers 1,000 ML IV SCH (21:00)
[2022-02-06] MEDS ORDERED: Oxytocin/Lactated Ringers 10 UNIT/1,000 ML BAG IV SCH ×2 (21:00→23:00)
[2022-02-06] MEDS ORDERED: Sodium Chloride 0.9% 10 ML Syringe FLUSH SCH (21:00)
[2022-02-06 21:26] LABS: ESTIMATED GFR > 60 mL/min (>60)
[2022-02-07] MEDS ORDERED: Docusate Sodium 100 MG Cap PO PRN (06:51)
[2022-02-07] MEDS ORDERED: Witch Hazel Medicated Pads 40/Jar TOP PRN (06:51)
[2022-02-07] MEDS ORDERED: Ibuprofen 600 MG Tab PO PRN (06:51)
[2022-02-07] MEDS ORDERED: Benzocaine/Menthol 20%-0.5% Spray 78 GM Cannister TOP PRN (06:51)
[2022-02-07] MEDS ORDERED: Acetaminophen 325 MG Tab PO PRN (06:51)
[2022-02-08 11:27] VITALS: BP 130/82; PULSE 68
== END 2022-02-08 10:30 | disposition home or self-care (01) | DRG 807 ==
LOC: JD.OBCHECK 19:56 → JD.OB 19:56 → JD.OBCHECK 21:57 → JD.OB 21:57 → OBSVTOIN 02-07 06:12 → JD.OB 02-07 06:26
PROVIDERS: ADMIT Obstetrics & Gynecology; ATTEND Obstetrics & Gynecology
PROC: 10907ZC Drainage of Amniotic Fluid, Therapeutic from Products of Conception, Via Natural or Artificial Opening (ICD-10-PCS; principal; 2022-02-07)
PROC: 10E0XZZ Delivery of Products of Conception, External Approach (ICD-10-PCS; 2022-02-07)
PROC: 3E033VJ Introduction of Other Hormone into Peripheral Vein, Percutaneous Approach (ICD-10-PCS; 2022-02-07)
DX: O46.93 Antepartum hemorrhage, unspecified, third trimester (principal); Z37.0 Single live birth; Z3A.37 37 weeks gestation of pregnancy; Z91.040 Latex allergy status; Z88.8 Allergy status to other drugs, medicaments and biological substances
CPT/HCPCS: 36415; 59025; 59409; 82565; 84450; 84460; 85027; 86592; 86850; 86900; 86901; J2590; J7120